=== PATIENT | female | born 1995 | race Caucasian/White ===

== ENCOUNTER 2019-02-28 15:38 | Outpatient (CLI) | payer OTHER ==
[~2019-02-28] VITALS: Ht 152.4 cm; Wt 81.4 kg
[~2019-02-28 15:38] MED LIST: PRENAT PO
[2019-02-28 15:55] VITALS: Ht 152.4 cm; Wt 81.4 kg
--- NOTE | 2019-02-28 16:20 | HP ---
Date/Time of Note Date/Time of Note DATE: 02/28/19 TIME: 16:18 OB - History Hx of Present Free Text/Dictation 89 YO with IUP at 38 weeks with EDC 03/14/2019 who is here for labor evaluation. her cervix is 2 cm/ 50%. she denies LOF per vagina or vaginal bleeding. she is ambulating comfortably. she would like to go home if she does not change her cervix. she is motivated to be admitted in labor. Care: Good Care Ultrasounds: Normal mid trimester US Obstetrical Complications: None Medical Complications: None Past Family/Social History * Past Medical, Surgical, Family and Obstetric Histories reviewed from chart. OB Admission Exam Physical Exam HEENT: WNL Heart: Rhythm Normal Lungs: Clear, Equal Abdomen: WNL Extremities: Normal Reflexes: Normal OB Assessment/Plan Other Assessment: r/o labor Other plan: will admit if in labor, other watson she would like to go home GUERO SMILEY MD Feb 28, 2019 16:20
--- NOTE | 2019-02-28 19:14 | TRIAGE ---
OB Triage Datetime Report Generated by CPN: 02/28/2019 19:13 Datetime: 02/28/2019 16:00 Maternal Assessment Level of Consciousness: Fully Conscious DTR's/Clonus: DTRs 1+ Headache: Denies Blurred Vision: No Respiratory Effort: Unlabored Breath Sounds, Left: Clear and Equal Breath Sounds, Right: Clear and Equal Nausea/Vomiting: Denies RUQ Epigastric Pain: Denies Facial Edema: None Labor Evaluation Frequency: X1` Monitor Mode: External Duration (sec)2399: 60 Quality: Mild Pattern: Normal: <= 5 Contractions in 10 Minutes Resting Tone [place]: Relaxed Heart Rate FHR Baseline Rate: 135 Monitor Mode: External US Variability: Moderate 6-25 bpm Accelerations: 15X15 Decelerations: None Category: Category I Pain Assessment Pain Scale: 4 Pain Presence: Intermittent Pain Type: Cramping Pain Location: Back Pain Goal: 3 Vaginal Exam Membrane Status: Intact Datetime: 02/28/2019 15:45 Assessment Type: Triage EGA: 38.0 Maternal Assessment Level of Consciousness: Fully Conscious DTR's/Clonus: DTRs 2+; No Clonus Headache: Denies Blurred Vision: No Respiratory Effort: Unlabored; Regular Rhythm; Equal Expansion Breath Sounds, Left: Clear and Equal Breath Sounds, Right: Clear and Equal Nausea/Vomiting: Denies RUQ Epigastric Pain: Denies Lower Extremities Edema: None Degree: None Upper Extremities Edema: None Degree: None Facial Edema: None Fall Risk Assessment History of Falling: (0) No Secondary Diagnosis: (0) No Ambulatory Aid: (0) Bedrest/Nurse Assist IV Therapy: (0) No Gait: (0) Normal/Bedrest/Immobile Mental Status: (0) Oriented to Own Ability Fall Score: 0 Fall Risk Score Definition: No Risk: No action required Datetime: 02/28/2019 15:33 Time of Arrival: 02/28/2019 15:33 Arrived By: Ambulatory Arrived From: Home Chief Complaint: PT CAME IN C/O LABOR Movement: Present Contractions: Irregular Time Contractions Began: 02/28/2019 05:00 Rupture of Membranes: Denies Vaginal Discharge: Denies Recent Sexual Intercouse: Denies Abdominal Trauma: Not Applicable Additional Patient Complaints: NONE Time Provider Notified: 02/28/2019 16:00 Provider Notified: BALJIT Initial Plan: LUIS A HERNANDEZ
== END 2019-02-28 18:59 | disposition home or self-care (01) ==
LOC: OBT 15:38 → L-D 15:39 → OBT 15:42 → UNDOADMIN 15:42 → OBT 18:59
PROVIDERS: ATTEND Specialist
DX: O75.89 Other specified complications of labor and delivery (principal); Z3A.38 38 weeks gestation of pregnancy
CPT/HCPCS: 76818; Z7500; G0463

== ENCOUNTER 2019-03-03 23:45 | Inpatient (IN) | payer OTHER ==
[~2019-03-03] VITALS: Ht 177.8 cm; Wt 81.2 kg
[2019-03-03 23:53] VITALS: Ht 177.8 cm; Wt 81.2 kg
[2019-03-04 00:08] VITALS: BP 117/74; PULSE 76; RESP 18
--- NOTE | 2019-03-04 00:27 | TRIAGE ---
OB Triage Datetime Report Generated by CPN: 03/04/2019 00:27 Datetime: 03/04/2019 00:05 Vaginal Exam Dilatation (cms): 4.5 Effacement (%): 90 Station: -2 Exam By: Art Brown RN Membrane Status: Bulging Vaginal Bleeding: None Cervix, Consistency: Soft Cervix, Position: Midposition Presentation 'A': Cephalic Datetime: 03/03/2019 23:51 Time of Arrival: 03/03/2019 23:40 EGA: 38.3 Arrived By: Wheelchair Arrived From: Home Chief Complaint: UC's since a.m. Movement: Present Contractions: Irregular Time Contractions Began: 03/03/2019 07:00 (Annotations: Data stored by [facility] on behalf of user) Contractions: 3-5mins Rupture of Membranes: Denies Vaginal Bleeding: None Patient Complaints: Contractions Time Provider Notified: 03/04/2019 00:16 Provider Notified: Dr Castellano Initial Plan: EFM, SVE Datetime: 02/28/2019 19:08 Vaginal Exam Dilatation (cms): 2.0 Effacement (%): 50 Station: -2 Exam By: CASSY FERRARO Vaginal Bleeding: None Cervix, Consistency: Soft Cervix, Position: Midposition Datetime: 02/28/2019 19:00 Maternal Assessment Level of Consciousness: Fully Conscious DTR's/Clonus: DTRs 1+ Headache: Denies Blurred Vision: No Nausea/Vomiting: Denies RUQ Epigastric Pain: Denies Facial Edema: None Labor Evaluation Frequency: IRREGULAR Monitor Mode: External Duration (sec)2399: 20-50 Quality: Mild Pattern: Normal: <= 5 Contractions in 10 Minutes Resting Tone [place]: Relaxed Heart Rate FHR Baseline Rate: 130 Monitor Mode: External US Variability: Moderate 6-25 bpm Accelerations: 15X15 Decelerations: None Category: Category I Pain Assessment Pain Scale: 0 Pain Presence: None/Denies Pain Type: N/A Pain Goal: 3 Membrane Status: Intact Datetime: 02/28/2019 15:45 EGA: 38.0 Fall Risk Assessment Fall Score: 0 Fall Risk Score Definition: No Risk: No action required
[2019-03-04] MEDS ORDERED: CARBOPROST 250 MCG INJ IM PRN ×2 (00:30→20:30)
[2019-03-04] MEDS ORDERED: OXYTOCIN 30 UNITS/LR 500 ML IV PRN ×2 (00:30→20:30)
[2019-03-04] MEDS ORDERED: MISOPROSTOL 200 MCG TAB PR PRN ×2 (00:30→20:30)
[2019-03-04] MEDS ORDERED: OXYTOCIN 30 UNITS/LR 500 ML IV SCH ×4 (00:30→20:04)
[2019-03-04] MEDS ORDERED: BUTORPHANOL 2 MG INJ IV PRN (00:30)
[2019-03-04] MEDS ORDERED: LIDOCAINE 1% (MPF) 30 ML INJ INJ PRN (00:30)
[2019-03-04] MEDS ORDERED: OXYCODONE/ACETAMINOPHEN (5/325) TAB PO PRN (00:30)
[2019-03-04] MEDS ORDERED: IBUPROFEN 600 MG TAB PO PRN (00:30)
[2019-03-04] MEDS ORDERED: METHYLERGONOVINE 0.2 MG INJ IM PRN ×2 (00:30→20:30)
[2019-03-04] MEDS: LACTATED RINGER'S 1,000 ML IV SCH ×4 (00:54→19:01)
--- NOTE | 2019-03-04 01:45 | HP ---
Date/Time of Note Date/Time of Note DATE: 03/04/19 TIME: 01:44 OB - History Hx of Present Free Text/Dictation 23 yo at 38+ weeks of gestation with ESTRELLITA 03/14/2019 She presents with regular contractions and bulging membranes. Reports positive movement, denies any vaginal bleeding GBS status is negative : 2 Para: 1 Care: Good Care Obstetrical Complications: None Medical Complications: None Past Family/Social History * Past Medical, Surgical, Family and Obstetric Histories reviewed from chart. OB Admission Exam Vital Signs Vital Signs Vital Signs Date Temp Pulse Resp B/P (MAP) Pulse Ox O2 O2 Flow FiO2 Time Delivery Rate 03/04/19 98.1 76 18 117/74 Room Air 00:08 (88) Physical Exam HEENT: WNL Heart: Rhythm Normal Lungs: Clear, Equal Abdomen: WNL Extremities: Normal Reflexes: Normal Cervical Dilatation: 4cm Effacement: 75% Station: -2 Membranes: Intact Heart Rate: 140's Accelerations: Accelerations Present Decelerations: No Decelerations Varibility: Moderate Contractions on Admission: < 5 Minutes Apart Intensity: Moderate Last 72 hours Lab Results CBC & BMP 03/04/19 00:35 OB Assessment/Plan Reason for admission: active labor Induction Method: per Pitocin Protocol Other plan: Admit to L&D Oxytocin augmentation Pain meds as needed Copies To: CC: GUERO SMILEY MD ; JOESPH OREILLY MD Mar 04, 2019 01:44
--- NOTE | 2019-03-04 07:49 | PREAC ---
Date/Time of Note Date/Time of Note DATE: 03/04/19 TIME: 07:48 Anesthesia Eval and Record Evaluation Time Pre-Procedure Interview DATE: 03/04/19 TIME: 07:48 Age 23 Sex female NPO: 8 hrs Preoperative diagnosis iup at 40 weeks Planned procedure labor epidural Past Medical History Past Medical History: Includes GI: Obesity Surgery & Anesthesia Issues No known issue Meds Anticoagulation: No Beta Kemi within 24 hr: No Reason Beta Kemi not given: Pt. not on B-Kemi Reported Medications Multivit/Min/Fol Ac/Iron/Pren* ( S*) 1 Tab Tab, 1 TAB PO DAILY, #1 TAB 12/31/14 Current Medications Lactated Ringer's 1,000 ml @ 125 mls/hr Q8H IV Last administered on 03/04/19at 06:17; Admin Dose 125 MLS/HR; Start 03/04/19 at 00:17 Butorphanol Tartrate (Stadol) 2 mg Q2H PRN IV .PAIN; Start 03/04/19 at 00:30 Lidocaine (Xylocaine 1% (Mpf)) 30 ml ONCE PRN INJ .EPISIOTOMY; Start 03/04/19 at 00:30 Oxytocin/Lactated Ringer's 500 ml @ 500 mls/hr ONCE POST IV ; Start 03/04/19 at 00:30 Oxytocin/Lactated Ringer's 500 ml @ 125 mls/hr POST IV ; Start 03/04/19 at 00:30 Ibuprofen (Motrin) 600 mg ONCE PRN PO .PAIN 1-5; Start 03/04/19 at 00:30 Oxycodone/ Acetaminophen (Percocet (5/ 325)) 2 tab ONCE PRN PO .PAIN 6-10; Start 03/04/19 at 00:30 Oxytocin/Lactated Ringer's 500 ml @ 0 mls/hr ONCE PRN IV .VAGINAL BLEEDING; Start 03/04/19 at 00:30 Methylergonovine Maleate (Methergine) 0.2 mg ONCE PRN IM .VAGINAL BLEEDING; Start 03/04/19 at 00:30 Carboprost Tromethamine (Hemabate) 250 mcg ONCE PRN IM .VAGINAL BLEEDING; Start 03/04/19 at 00:30 Misoprostol (Cytotec) 1,000 mcg ONCE PRN VT .VAGINAL BLEEDING; Start 03/04/19 at 00:30 Oxytocin/Lactated Ringer's 500 ml @ 0 mls/hr Q0M IV Last administered on 03/04/19at 07:43; Admin Dose 1 MLS/HR; Start 03/04/19 at 07:30 Meds reviewed: Yes Allergies Coded Allergies: No Known Drug Allergies (Unverified Allergy, Unknown, 02/28/19) Allergies Reviewed: Yes Labs/Studies Labs Reviewed: Reviewed by anesthesiologist Result Diagram: 03/04/19 0035 Laboratory Tests 03/04/19 00:35 Blood Bank Test 03/04/19 00:35 Antibody Screen NEGATIVE Blood Type B POSITIVE Rh Immune Globulin Candidate NO test: Positive Pre-procedure Exam Last vitals Vital Signs Date Temp Pulse Resp B/P (MAP) Pulse Ox O2 O2 Flow FiO2 Time Delivery Rate 03/04/19 98.1 76 18 117/74 Room Air 00:08 (88) Airway: Adequate mouth opening, Adequate thyromental dist Mallampati: Mallampati II Teeth: Normal Lung: Normal Heart: Normal ASA Physical Status ASA physical status: 2 Emergency: None Planned Anesthetic Neuraxial: Epidural Planned Pain Management Parenteral pain med Pre-operative Attestations Prior to commencing anesthesia and surgery, the patient was re-evaluated, there was verification of: *The patient's identity *The results of appropriate recent lab work and preoperative vital signs *The above evaluation not changing prior to induction *Anesthetic plan, risk benefits, alternative and complications discussed with patient/family; questions answered; patient/family understands, accepts and wishes to proceed. RICKEY COOLEY Mar 04, 2019 07:49
[2019-03-04] MEDS ORDERED: FENTAnyl 2MCG/ML-ROPIV 0.2% 100 ML ONE (07:53)
[2019-03-04] MEDS ORDERED: FENTAnyl 2MCG/ML-ROPIV 0.2% 100 ML BAG EPI SCH (08:00)
[2019-03-04] MEDS ORDERED: ONDANSETRON 4 MG INJ IV PRN (08:00)
[2019-03-04] MEDS ORDERED: NALOXONE (0.4 MG/ML) INJ IV PRN (08:00)
[2019-03-04] MEDS ORDERED: DIPHENHYDRAMINE 50 MG INJ IV PRN (08:00)
--- NOTE | 2019-03-04 08:58 | PAC ---
Date/Time of Note Date/Time of Note DATE: 03/04/19 TIME: 08:57 Post-Anesthesia Notes Post-Anesthesia Note Last documented vital signs Vital Signs Date Temp Pulse Resp B/P (MAP) Pulse Ox O2 O2 Flow FiO2 Time Delivery Rate 03/04/19 98.1 76 18 117/74 Room Air 0857 (88) Activity: WNL Respiratory function: WNL Cardiovascular function: WNL Mental status: Baseline Pain reasonably controlled: Yes Hydration appropriate: Yes Nausea/Vomiting absent: Yes RICKEY COOLEY Mar 04, 2019 08:58
[2019-03-04] MEDS ORDERED: DEXTROSE 5%-LR 1,000 ML IV PRN (15:15)
[2019-03-04] MEDS ORDERED: MINERAL OIL LIGHT 10 ML VIAL TOP ONE (15:30)
--- NOTE | 2019-03-04 20:02 | LDN ---
Date/Time of Note Date/Time of Note DATE: 03/04/19 TIME: 20:00 Delivery Summary of a viable baby boy weighing 3830 grams or 8# 7 oz, 20.5" long, and with Apgars of 9/9. Weeks of Gestation 38w 4d Placenta Delivered: Spontaneously Meconium: none Episiotomy: No Perineal laceration: 0 Laceration repair: 1st degree left labial laceration repaired with 3-0 chromic suture. Anesthesia type: Local Estimated blood loss: 200 Sponge & Needle done & correct: Yes All needle counts correct: Yes Any foreign bodies felt in the: No (vagina) Infant Delivery Information Sex Sex: male Apgars 1 Minute: 9 5 Minute: 9 Suctioning Nose & mouth suctioned at rashaun: Yes Delee suction performed: No Umbilical Cord Umbilical cord with: 3 Vessels Cord presentations: no nuchal cord Cord Blood was obtained: Yes Mother & Baby Disposition Disposition Mom & Baby to Maternity; Good: Yes Baby to NICU: No ERIC GODINEZ MD Mar 04, 2019 20:02
[2019-03-04] MEDS ORDERED: LANOLIN HPA 1 PKT TOP PRN (20:30)
[2019-03-04] MEDS ORDERED: HYDROCODONE/APAP (5/325) TAB PO PRN (20:30)
[2019-03-04] MEDS ORDERED: IBUPROFEN 600 MG TAB PO ONE (21:30)
[2019-03-04 21:45] VITALS: BP 135/77; PULSE 102; RESP 19
[2019-03-04] MEDS: LACTATED RINGER'S 1,000 ML IV* SCH (22:04)
[2019-03-04 22:45] VITALS: BP 114/69; PULSE 87; RESP 19
[2019-03-04] MEDS: BENZOCAINE 20% 56 ML SPRAY TOP PRN (23:40)
[2019-03-05 03:20] VITALS: BP 104/53; PULSE 97; RESP 19
[2019-03-05] MEDS: LACTATED RINGER'S 1,000 ML IV* SCH (04:04)
[2019-03-05] MEDS: IBUPROFEN 600 MG TAB PO SCH ×5 (05:43→23:46)
[2019-03-05 08:00] VITALS: BP 103/58; PULSE 77; RESP 19
[2019-03-05] MEDS: BENZOCAINE 20% 56 ML SPRAY TOP PRN (11:33)
[2019-03-05 12:00] VITALS: BP 116/63; PULSE 78; RESP 18
--- NOTE | 2019-03-05 12:15 | DS ---
Date/Time of Note Date/Time of Note DATE: 03/05/19 TIME: 12:14 Obstetrical Discharge Record Final Diagnosis Final Diagnosis: Term delivered Vaginal Delivery Obstetrical Delivery: Spontaneous Complications Augmentation: No Induction: No Rupture of Membranes: No Condition on Discharge Physical Assessment Voiding: Yes Bowel Movement: Yes Breast: Soft, non-tender, Filling Fundus: Firm Abdomen and Incision: soft, not tender Calf Tenderness: No Patient Condition: Good GUERO SMILEY MD Mar 05, 2019 12:15
[2019-03-05 16:15] VITALS: BP 108/57; PULSE 75; RESP 18
[2019-03-05 20:00] VITALS: BP 105/68; PULSE 72; RESP 20
[2019-03-06 04:09] VITALS: BP 112/65; PULSE 76; RESP 20
[2019-03-06] MEDS: IBUPROFEN 600 MG TAB PO SCH ×2 (05:20→11:50)
[2019-03-06 08:00] VITALS: BP 94/64; PULSE 80; RESP 18
[2019-03-06] MEDS ORDERED: DIPHTH/TET/ACEL PERTUSS (ADULT) 0.5 ML VIAL IM* ONE (09:00)
--- NOTE | 2019-03-07 15:59 | DELSUM ---
Delivery Summary A-C Datetime Report Generated by CPN: 03/07/2019 15:59 DELIVERY PERSONNEL Inventory Transcriber: Minor Bushde MATERNAL INFORMATION Delivery Anesthesia: Epidural Medications in Delivery: 30 UNITS OF PITOCIN WITH LR Delivery QBL (ml): 200 Placenta Cultured: No Maternal Complications: None LABOR SUMMARY EDC: 03/14/2019 00:00 No. Babies in Womb: 1 Attempted: No Labor Anesthesia: Epidural LABOR INFORMATION Reason for Induction: Not Applicable Onset of Labor: 03/03/2019 06:00 Complete Dilatation: 03/04/2019 17:45 Oxytocin: Augmentation Group B Beta Strep: Negative Antibiotics # of Doses: 0 Steroids Given: None Reason Steroids Not Administered: Not Applicable MEMBRANES Membranes Rupture Method: Artificial Rupture of Membranes: 03/04/2019 17:15 Length of Rupture (hr): 2.23 Amniotic Fluid Color: Clear Amniotic Fluid Amount: Moderate Amniotic Fluid Odor: None STAGES OF LABOR Stage 1 hr: 35 Stage 1 min: 45 Stage 2 hr: 1 Stage 2 min: 44 Stage 3 hr: 0 Stage 3 min: 11 Total Time in Labor hr: 37 Total Time in Labor min: 40 VAGINAL DELIVERY Episiotomy: None Laceration Extension: First Degree Other Laceration: left labial laceration Laceration Repair: Yes Initial Vag Sponge Count: 10 Final Vag Sponge Count: 10 Initial Vag Sharps Count: 1 Final Vag Sharps Count: 1+1 Sponge Count Correct: Yes; Vaginal Sweep Performed Sharps Count Correct: Yes BABY A INFORMATION Delivery Date/Time: 03/04/2019 19:29 Method of Delivery: Vaginal Born in Route : No : N/A Forceps: N/A Vacuum Extraction: N/A Shoulder Dystocia : N/A SHOULDER DYSTOCIA BABY A Infant Delivery Date/Time: 03/04/2019 19:29 PRESENTATION/POSITION BABY A Presentation: Cephalic Cephalic Presentation: Vertex Vertex Position: Left Occipital Anterior Breech Presentation: N/A PLACENTA INFORMATION BABY A Placenta Delivery Time : 03/04/2019 19:40 Placenta Method of Delivery: Spontaneous Placenta Status: Delivered SCORES BABY A Heart Rate 1 min: >100 bpm Resp Effort 1 min: Good Cry Reflex Irritability 1 min: Cough/Sneeze/Pulls Away Muscle Tone 1 min: Active Motion Color 1 min: Body [place], Extremit Blue Resuscitation Effort 1 min: Tactile Stimulation SCORE 1 MIN: 9 Heart Rate 5 min: >100 bpm Resp Effort 5 min: Good Cry Reflex Irritability 5 min: Cough/Sneeze/Pulls Away Muscle Tone 5 min: Active Motion Color 5 min: Body [place], Extremit Blue Resuscitation Effort 5 min: Tactile Stimulation SCORE 5 MIN: 9 INFANT INFORMATION BABY A Gestational Age at Delivery: 38.4 Gestational Status: Early Term- 37- 38.6 Weeks Outcome : Liveborn Infant Condition : Stable Infant Sex: Male IDENTIFICATION/MEDS BABY A ID Band Number: [id number] ID Band Location: Right Leg; Left Arm Sensor Applied: Yes Sensor Number: [id number] Sensor Location : Cord Clamp Vitamin K Given : Not Given Erythromycin Given: Not Given WEIGHT/LENGTH BABY A Birthweight (gm): 3830 Weight (lb): 8 Weight (oz): 7 Length (in): 20.50 Length (cm): 52.07 CORD INFORMATION BABY A No. Cord Vessels: 3 Nuchal Cord : N/A Cord Blood Taken: Yes Suction: Mouth; Nose ASSESSMENT BABY A Infant Complications: None Physical Findings at Delivery: Within Normal Limits Respirations: Appears Normal Career Development Engineer/ALS Called : No Infant Care By: Thor MARTINEZ Transferred To: Remains with Mother
== END 2019-03-06 13:00 | disposition home or self-care (01) | DRG 807 ==
LOC: OBT 23:45 → L-D 23:47 → OBT 03-04 00:05 → PP1 03-04 21:41
PROVIDERS: ADMIT Specialist; ATTEND Specialist
PROC: 10E0XZZ Delivery of Products of Conception, External Approach (ICD-10-PCS; principal; 2019-03-04)
PROC: 0HQ9XZZ Repair Perineum Skin, External Approach (ICD-10-PCS; 2019-03-04)
DX: O70.0 First degree perineal laceration during delivery (principal); Z37.0 Single live birth; Z3A.38 38 weeks gestation of pregnancy
CPT/HCPCS: 85025; 85610; 85730; 86592; 86850; 86900; 86901; 87340; G0463; J2590; J3010; J7120